=== PATIENT | male | born 1960 | race Caucasian/White ===

== ENCOUNTER 2022-09-09 06:51 | Day surgery (SDC) | payer MEDICAID ==
[~2022-09-09] VITALS: Ht 172.7 cm; Wt 116.6 kg
[2022-09-09] MEDS ORDERED: IOPAMIDOL 50 ML VIAL IV ONE (08:45)
[2022-09-09] MEDS ORDERED: NORMAL SALINE 10 ML VIAL ONE (08:45)
[2022-09-09] MEDS ORDERED: methylPREDNISolone ACETATE 40 MG/ML ONE (08:45)
[2022-09-09] MEDS ORDERED: DIPHENHYDRAMINE INJ 50 MG/ML VIAL ONE (08:45)
[2022-09-09] MEDS ORDERED: LIDOCAINE 2%, 20 ML MDV ONE (08:45)
[2022-09-09] MEDS: MIDAZOLAM HCL 5 MG/5 ML VIAL ONE ×2 (10:03→10:04)
[2022-09-09] MEDS: fentaNYL CITRATE/PF 100 MCG/2 ML AMP ONE ×2 (10:05→10:07)
[2022-09-09] MEDS ORDERED: ONDANSETRON HCL 4 MG/2 ML VIAL ONE (15:36)
[2022-09-09 17:35] VITALS: BP_SYST 111
== END 2022-09-09 11:00 | disposition home or self-care (01) ==
LOC: SDS 06:51 → SMU 06:55 → SDS 11:00
PROVIDERS: ATTEND Internal Medicine
DX: M51.16 Intervertebral disc disorders with radiculopathy, lumbar region (principal); I10 Essential (primary) hypertension; G89.4 Chronic pain syndrome; E11.9 Type 2 diabetes mellitus without complications; Z79.899 Other long term (current) drug therapy; Z20.822 Contact with and (suspected) exposure to COVID-19
CPT/HCPCS: 62323; 87426; 82962; 36415; J1200; J2001; J1030; J2250; J2405; J3010; Q9967; 76000